=== PATIENT | female | born 1980 | race Caucasian/White ===

== ENCOUNTER 2017-09-01 21:53 | Inpatient (IN) ==
[2017-09-01] MEDS ORDERED: 0.9 % Sodium Chloride 1,000 ML IVC ONE (23:00)
[2017-09-01] MEDS ORDERED: Isovue-370 500 ML INFUS..BTL IV ONE (23:01)
[2017-09-01] MEDS ORDERED: Ipratropium/Albuterol Neb 3 ML IH ONE (23:02)
[2017-09-01] MEDS ORDERED: methylPREDNISolone 125 MG/2 ML VIAL IVP ONE (23:03)
[2017-09-01 23:06] LABS: Bilirubin,Urine Negative (Negative); Blood,Urine Trace-intact (Negative); Clarity,Urine Clear (Clear); Color,Urine Yellow (Yellow); Glucose,Urine (UA) Normal (Normal); Ketones,Urine Negative (Negative); Leukocyte Esterase,Urine Negative (Negative); Nitrite,Urine Negative (Negative); PH,Urine 6.5 pH Units (5.0-8.0); Protein,Urine Negative (Neg-Trace); Specific Gravity,Urine 1.025 (1.010-1.025); Urobilinogen,Urine Normal (Normal)
--- NOTE | 2017-09-01 23:07 | Emergency Department Note ---
Disposition Clinical Impression: COPD exacerbation, Hypoxia, Hypokalemia Disposition: Admitted As Inpatient Condition: Fair Time of Disposition: 02:29 General Adult HPI - General Chief complaint: ED Fever Stated complaint: Fever Time Seen by Provider: 09/01/17 22:48 Source: patient Mode of arrival: ambulatory Limitations: no limitations Nursing Notes Reviewed: Yes Vital Signs Reviewed: Yes - History of Present Illness HPI Narrative: 36-year-old female with history of endometriosis as well as chronic pain management for her back on morphine as well as Valium for her anxiety presents for evaluation of a fever. Patient states symptom onset was approximately 3 days ago. Since in the patient's had fevers as high as 103 Fahrenheit. Patient 's been taking Motrin for symptom relief. Last dose of Motrin was 2 hours prior to arrival. Patient also was complaining of dyspnea over 2 days. Nonproductive cough. Patient also has baseline abdominal pain and has a history of endometriosis. Patient denies any vomiting. Patient states her abdominal pain is chronic in nature. Has had prior abdominal surgeries related to her endometriosis. Patient was a about her surgical history and whether or not her ovaries were removed. Patient denies any IV drug use however does appear to have track mcdaniel on upper extremities. Pain Scale: 0 - Related Data Home Medications Medication Instructions Recorded Confirmed Morphine Sulfate [Nena] 1 cap PO BID PRN 09/02/17 09/02/17 diazePAM [Valium] 10 mg PO BID PRN 09/02/17 09/02/17 Allergies Allergy/AdvReac Type Severity Reaction Status Date / Time cephalexin [From Keflex] Allergy Swelling Verified 09/01/17 21:56 of Lip/Tongue/Throat All systems ED: reviewed and negative except as stated. Constitutional: Reports: fever Cardiovascular: Denies: chest pain Respiratory: Reports: cough, dyspnea Gastrointestinal: Reports: abdominal pain. Denies: vomiting Past Medical History - Past Medical History Source: patient Physical Exam - General Limitations: no limitations General appearance: alert, in no apparent distress, other (Appears under the influence) - Head Head exam: atraumatic, normocephalic, normal inspection - Eye Eye exam: Present: normal appearance, PERRL, EOMI. Absent: miosis, mydriasis - ENT ENT exam: normal exam - Neck Neck exam: Present: normal inspection - Chest Chest inspection: Present: normal inspection, symmetric chest wall rise - Respiratory Respiratory exam: Present: wheezes (Respiratory expiratory wheezes throughout), prolonged expiratory phase - Cardiovascular Cardiovascular exam: Present: normal rhythm, tachycardia. Absent: systolic murmur - Abdominal Exam Abdominal exam: Present: soft, tenderness (Right-sided abdominal tenderness) - Extremities Exam Extremities exam: Present: normal inspection, pedal edema (Trace bilateral) - Expanded Upper Extremity Exam Forearm/Wrist exam: Present: other (Tract mcdaniel of the upper extremities without signs of secondary infection.) - Expanded Lower Extremity Exam Neurovascular/Tendon exam: Present: normal capillary refill - Neurological Exam Neurological exam: Present: alert, oriented X3, CN II-XII intact - Skin Skin exam: Present: warm, dry, intact, normal color Course Course Narrative: Patient seen and examined. Patient appears to have track mcdaniel on upper extremity concerns for IV drug use and likely source of infection in the lungs. Patient will get a CT of the chest as well as abdomen pelvis given abdominal pain. Patient also get basic labs including a lactate. Disposition is pending. - Reevaluation(s) Reevaluation #1: While the patient was sleeping she had a good waveform and was satting 84% on room air. Patient is currently on 2 L. Time: 01:46 Reevaluation #2: Patient's lungs sound clear. The patient continues to be hypoxic was sleeping. Patient be admitted for COPD exacerbation. Time: 02:29 Vital Signs Temperature 99.1 F 09/01/17 21:54 Pulse Rate 115 09/01/17 21:54 Respiratory Rate 22 09/01/17 21:54 Blood Pressure 106/69 09/01/17 21:54 O2 Sat by Pulse Oximetry 91 09/01/17 21:54 Temperature 99.1 F 09/02/17 00:31 Pulse Rate 103 09/02/17 02:30 Respiratory Rate 18 09/02/17 03:18 Blood Pressure 95/82 09/02/17 03:18 O2 Sat by Pulse Oximetry 92 09/02/17 02:30 Oxygen Delivery Oxygen Delivery Nasal Cannula Medical Decision Making - MDM Narrative Medical decision making narrative: 36-year-old female with a pack-a-day smoking history chronically presents for evaluation of fever. Patient's had 3 days of fever with 2 days of worsening dyspnea. Patient's had a nonproductive cough. Patient was tachycardic during the ED course. Patient denied any history of IV drug use. However given the concern with a tachycardia dyspnea a CT Josseline chest was obtained. Patient also had a CT of the abdomen pelvis as the patient had abdominal pain with a history of endometriosis. Patient is on chronic opioids. Patient responded well to nebs and steroids. Patient has a mild white count. Patient's CT findings consistent with emphysema and patient was treated as a COPD exacerbation with antibiotics. Patient was hypoxic on room air is does not typically require oxygen. Patient will be admitted for COPD exacerbation. - Lab Data Lab results reviewed: Yes I reviewed the patient's lab results. Result diagrams: 09/01/17 22:57 09/01/17 22:57 Lab Results 09/01/17 09/01/17 09/01/17 Range/Units 22:45 22:45 22:57 WBC 11.9 H (4.3-11.1) K/mcL RBC 5.09 H (3.82-4.97) M/mcL Hgb 15.1 (11.5-15.4) g/dL Hct 46.3 H (35.3-44.9) % MCV 91.0 (83.0-100.0) fL MCH 29.7 (28.0-33.3) pg MCHC 32.6 (31.6-35.5) g/dL RDW 13.3 (11.5-14.5) % Plt Count 300 (140-400) K/mcL MPV 10.0 (9.4-12.4) fL Immature Gran % 0.4 (0-4) % Seg Neutrophils % 68.3 % Lymphocytes % 23.5 % Monocytes % 6.0 % Eosinophils % 1.4 % Basophils % 0.4 % Neutrophils # 8.1 (1.6-8.9) K/mcL Lymphocytes # 2.8 (0.6-4.6) K/mcL Monocytes # 0.7 (0.0-1.3) K/mcL Eosinophils # 0.2 (0.0-0.6) K/mcL Basophils # 0.1 (0.0-0.2) K/mcL Sodium (136-145) mEq/L Potassium (3.5-5.1) mEq/L Chloride (98-107) mEq/L Carbon Dioxide (23-29) mEq/L BUN (6-20) mg/dL Creatinine (0.60-1.20) mg/dL Est GFR ( Amer) (> 60) Est GFR (Non-Af Amer) (> 60) BUN/Creatinine Ratio (6-26) Glucose (70-105) mg/dL Calculated Osmolality (280-300) Lactic Acid (0.5-2.2) mmol/L Calcium (8.6-10.3) mg/dL Magnesium (1.6-2.6) mg/dL Total Bilirubin (0.3-1.0) mg/dL Direct Bilirubin (0.0-0.2) mg/dL Indirect Bilirubin (0.0-1.2) mg/dL AST (13-39) Units/L ALT (7-52) Units/L Alkaline Phosphatase (34-104) Units/L Troponin I (< 0.04) ng/mL B-Natriuretic Peptide (Less than 100) pg/mL Serum Total Protein (6.4-8.9) g/dL Albumin (3.5-5.7) g/dL Globulin (2.4-3.5) g/dL Albumin/Globulin Ratio (1.1-2.2) Urine Color Yellow (Yellow) Urine Clarity Clear (Clear) Urine pH 6.5 (5.0-8.0) pH Units Ur Specific [place] 1.025 (1.010-1.025) Urine Protein Negative (Neg-Trace) mg/dL Urine Glucose (UA) Normal (Normal) mg/dL Urine Ketones Negative (Negative) mg/dL Urine Blood Trace-intact H (Negative) Urine Nitrite Negative (Negative) Urine Bilirubin Negative (Negative) Urine Urobilinogen Normal (Normal) mg/dL Ur Leukocyte Esterase Negative (Negative) Urine Microscopic RBC 0-3 (0-3) per hpf Ur Squamous Epith Cells Few (None-Few) per lpf Urine Bacteria None Seen (None-Few) per hpf Hyaline Casts None Seen (None-Few) per lpf Ur Culture Indicated? NO (NO) Urine Test Negative (Negative) Urine Opiates Screen (Hxnduw=663) ng/mL Ur Barbiturates Screen (Eoqtns=851) ng/mL Ur Phencyclidine Scrn (Cutoff=25) ng/mL Ur Amphetamines Screen (Afjvou=8895) ng/mL U Benzodiazepines Scrn (Jpsxyi=029) ng/mL Urine Cocaine Screen (Cutoff= 300) ng/mL U Marijuana (THC) Screen (Cutoff = 50) ng/mL 09/01/17 09/01/17 09/01/17 Range/Units 22:57 22:57 23:03 WBC (4.3-11.1) K/mcL RBC (3.82-4.97) M/mcL Hgb (11.5-15.4) g/dL Hct (35.3-44.9) % MCV (83.0-100.0) fL MCH (28.0-33.3) pg MCHC (31.6-35.5) g/dL RDW (11.5-14.5) % Plt Count (140-400) K/mcL MPV (9.4-12.4) fL Immature Gran % (0-4) % Seg Neutrophils % % Lymphocytes % % Monocytes % % Eosinophils % % Basophils % % Neutrophils # (1.6-8.9) K/mcL Lymphocytes # (0.6-4.6) K/mcL Monocytes # (0.0-1.3) K/mcL Eosinophils # (0.0-0.6) K/mcL Basophils # (0.0-0.2) K/mcL Sodium 136 (136-145) mEq/L Potassium 3.1 L (3.5-5.1) mEq/L Chloride 102 (98-107) mEq/L Carbon Dioxide 25 (23-29) mEq/L BUN 8 (6-20) mg/dL Creatinine 0.75 (0.60-1.20) mg/dL Est GFR ( Amer) > 60 (> 60) Est GFR (Non-Af Amer) > 60 (> 60) BUN/Creatinine Ratio 11 (6-26) Glucose 148 H (70-105) mg/dL Calculated Osmolality 283 (280-300) Lactic Acid 2.0 (0.5-2.2) mmol/L Calcium 9.3 (8.6-10.3) mg/dL Magnesium 1.7 (1.6-2.6) mg/dL Total Bilirubin 0.3 (0.3-1.0) mg/dL Direct Bilirubin 0.1 (0.0-0.2) mg/dL Indirect Bilirubin 0.2 (0.0-1.2) mg/dL AST 34 (13-39) Units/L ALT 34 (7-52) Units/L Alkaline Phosphatase 95 (34-104) Units/L Troponin I < 0.03 (< 0.04) ng/mL B-Natriuretic Peptide 57 (Less than 100) pg/mL Serum Total Protein 7.4 (6.4-8.9) g/dL Albumin 3.9 (3.5-5.7) g/dL Globulin 3.5 (2.4-3.5) g/dL Albumin/Globulin Ratio 1.1 (1.1-2.2) Urine Color (Yellow) Urine Clarity (Clear) Urine pH (5.0-8.0) pH Units Ur Specific [place] (1.010-1.025) Urine Protein (Neg-Trace) mg/dL Urine Glucose (UA) (Normal) mg/dL Urine Ketones (Negative) mg/dL Urine Blood (Negative) Urine Nitrite (Negative) Urine Bilirubin (Negative) Urine Urobilinogen (Normal) mg/dL Ur Leukocyte Esterase (Negative) Urine Microscopic RBC (0-3) per hpf Ur Squamous Epith Cells (None-Few) per lpf Urine Bacteria (None-Few) per hpf Hyaline Casts (None-Few) per lpf Ur Culture Indicated? (NO) Urine Test (Negative) Urine Opiates Screen (Seyagg=769) ng/mL Ur Barbiturates Screen (Ibosjf=633) ng/mL Ur Phencyclidine Scrn (Cutoff=25) ng/mL Ur Amphetamines Screen (Eymsbi=5686) ng/mL U Benzodiazepines Scrn (Vlikod=563) ng/mL Urine Cocaine Screen (Cutoff= 300) ng/mL U Marijuana (THC) Screen (Cutoff = 50) ng/mL 09/01/17 Range/Units 23:04 WBC (4.3-11.1) K/mcL RBC (3.82-4.97) M/mcL Hgb (11.5-15.4) g/dL Hct (35.3-44.9) % MCV (83.0-100.0) fL MCH (28.0-33.3) pg MCHC (31.6-35.5) g/dL RDW (11.5-14.5) % Plt Count (140-400) K/mcL MPV (9.4-12.4) fL Immature Gran % (0-4) % Seg Neutrophils % % Lymphocytes % % Monocytes % % Eosinophils % % Basophils % % Neutrophils # (1.6-8.9) K/mcL Lymphocytes # (0.6-4.6) K/mcL Monocytes # (0.0-1.3) K/mcL Eosinophils # (0.0-0.6) K/mcL Basophils # (0.0-0.2) K/mcL Sodium (136-145) mEq/L Potassium (3.5-5.1) mEq/L Chloride (98-107) mEq/L Carbon Dioxide (23-29) mEq/L BUN (6-20) mg/dL Creatinine (0.60-1.20) mg/dL Est GFR ( Amer) (> 60) Est GFR (Non-Af Amer) (> 60) BUN/Creatinine Ratio (6-26) Glucose (70-105) mg/dL Calculated Osmolality (280-300) Lactic Acid (0.5-2.2) mmol/L Calcium (8.6-10.3) mg/dL Magnesium (1.6-2.6) mg/dL Total Bilirubin (0.3-1.0) mg/dL Direct Bilirubin (0.0-0.2) mg/dL Indirect Bilirubin (0.0-1.2) mg/dL AST (13-39) Units/L ALT (7-52) Units/L Alkaline Phosphatase (34-104) Units/L Troponin I (< 0.04) ng/mL B-Natriuretic Peptide (Less than 100) pg/mL Serum Total Protein (6.4-8.9) g/dL Albumin (3.5-5.7) g/dL Globulin (2.4-3.5) g/dL Albumin/Globulin Ratio (1.1-2.2) Urine Color (Yellow) Urine Clarity (Clear) Urine pH (5.0-8.0) pH Units Ur Specific [place] (1.010-1.025) Urine Protein (Neg-Trace) mg/dL Urine Glucose (UA) (Normal) mg/dL Urine Ketones (Negative) mg/dL Urine Blood (Negative) Urine Nitrite (Negative) Urine Bilirubin (Negative) Urine Urobilinogen (Normal) mg/dL Ur Leukocyte Esterase (Negative) Urine Microscopic RBC (0-3) per hpf Ur Squamous Epith Cells (None-Few) per lpf Urine Bacteria (None-Few) per hpf Hyaline Casts (None-Few) per lpf Ur Culture Indicated? (NO) Urine Test (Negative) Urine Opiates Screen Positive H (Rbxvyt=352) ng/mL Ur Barbiturates Screen Positive H (Vsyyid=151) ng/mL Ur Phencyclidine Scrn Negative (Cutoff=25) ng/mL Ur Amphetamines Screen Negative (Wdioys=3461) ng/mL U Benzodiazepines Scrn Positive H (Xetuog=576) ng/mL Urine Cocaine Screen Negative (Cutoff= 300) ng/mL U Marijuana (THC) Screen Negative (Cutoff = 50) ng/mL - Radiology Data Radiology results reviewed: Yes I reviewed the patient's radiology results. Chest X-Ray 09/01/17 21:57 IMPRESSION: No acute disease. D/ / Yelitza Dailey Cha, MD / Yelitza Dailey Cha, MD Interpreting Provider: Yelitza Dailey Cha, MD Chest CTA 09/02/17 00:01 IMPRESSION: Negative for acute pulmonary embolism. Mild paraseptal and centrilobular emphysema. Scattered upper lobe predominant small centrilobular nodularity may reflect respiratory bronchiolitis in a smoker. Mild airway inflammation is also presumably smoking-related. No acute findings in the abdomen or pelvis. D/ / Shalom Kelsey / Shalom Kelsey Interpreting Provider: Shalom Kelsey - EKG Data EKG #1 EKG attestation: Yes I reviewed and interpreted this EKG. EKG shows normal: sinus rhythm Rate: tachycardia Rhythm: NSR [place]/QRS: normal Interpretation: no acute changes S.B.A.R. - S.B.A.RYumiko Situation: Demographics Background: Presenting Complaint Assessment: Vital Signs, Course and respsone to treatment, Patient/Family Expectation Recommendation: Barrier(s) to disposition, Recommendation based on pending studies, treatments, or consults S.B.A.RYumiko Report Given to: Dr. Simón Workman Repor Time: 02:28
[2017-09-01 23:11] LABS: Basophils # 0.1 K/mcL (0.0-0.2); Basophils % 0.4 %; Eosinophils # 0.2 K/mcL (0.0-0.6); Eosinophils % 1.4 %; Hematocrit 46.3 % (35.3-44.9); Hemoglobin 15.1 g/dL (11.5-15.4); Immature Granulocytes % 0.4 % (0-4); Lymphocytes # 2.8 K/mcL (0.6-4.6); Lymphocytes % 23.5 %; Mean Corpuscular HGB Conc 32.6 g/dL (31.6-35.5); Mean Corpuscular Hemoglobin 29.7 pg (28.0-33.3); Monocytes # 0.7 K/mcL (0.0-1.3); Neutrophils # 8.1 K/mcL (1.6-8.9); Platelet Count 300 K/mcL (140-400); Red Blood Count 5.09 M/mcL (3.82-4.97); Red Cell Distribution Width 13.3 % (11.5-14.5); Segmented Neutrophils % 68.3 %
[2017-09-01 23:21] LABS: RBC,Urine 0-3 per hpf (0-3)
[2017-09-01 23:22] LABS: Bacteria,Urine None Seen per hpf (None-Few); Hyaline Casts,Urine None Seen per lpf (None-Few); Squamous Epithelial Cell,Urine Few per lpf (None-Few)
[2017-09-01 23:30] LABS: Alanine Aminotransferase 34 Units/L (7-52); Albumin 3.9 g/dL (3.5-5.7); Albumin/Globulin Ratio 1.1 (1.1-2.2); Alkaline Phosphatase 95 Units/L (34-104); Aspartate Amino Transferase 34 Units/L (13-39); BUN/Creatinine Ratio 11 (6-26); Bilirubin,Direct 0.1 mg/dL (0.0-0.2); Bilirubin,Indirect 0.2 mg/dL (0.0-1.2); Bilirubin,Total 0.3 mg/dL (0.3-1.0); Blood Urea Nitrogen 8 mg/dL (6-20); Calcium 9.3 mg/dL (8.6-10.3); Carbon Dioxide 25 mEq/L (23-29); Chloride 102 mEq/L (98-107); Globulin 3.5 g/dL (2.4-3.5); Glucose 148 mg/dL (70-105); Osmolality,Calculated 283 (280-300); Potassium 3.1 mEq/L (3.5-5.1); Sodium 136 mEq/L (136-145); Total Protein 7.4 g/dL (6.4-8.9); eGFR For African Americans > 60 (> 60); eGFR For Non-African Americans > 60 (> 60)
[2017-09-01 23:38] LABS: Troponin I < 0.03 ng/mL (< 0.04)
[2017-09-02 00:15] LABS: Amphetamine Screen,Urine Negative ng/mL (Cutoff=1000); Barbiturate Screen,Urine Positive ng/mL (Cutoff=200); Benzodiazepines Screen,Urine Positive ng/mL (Cutoff=200); Cannabinoid Screen,Urine Negative ng/mL (Cutoff = 50); Cocaine Screen,Urine Negative ng/mL (Cutoff= 300); Opiate Screen,Urine Positive ng/mL (Cutoff=300); Phencyclidine Screen,Urine Negative ng/mL (Cutoff=25)
[2017-09-02] MEDS ORDERED: Levofloxacin 750 MG/150 ML 750 MG/150 ML BAG IVPB ONE (01:45)
[2017-09-02 02:50] LABS: Magnesium 1.7 mg/dL (1.6-2.6)
--- NOTE | 2017-09-02 03:24 | Emergency Department Note ---
Disposition Clinical Impression: COPD exacerbation, Hypoxia, Hypokalemia Disposition: Admitted As Inpatient Condition: Fair General Adult HPI - General Chief complaint: ED Fever Stated complaint: Fever Time Seen by Provider: 09/01/17 22:48 Source: patient Mode of arrival: ambulatory Limitations: no limitations Nursing Notes Reviewed: Yes Vital Signs Reviewed: Yes - History of Present Illness Pain Scale: 0 - Related Data Home Medications Medication Instructions Recorded Confirmed Morphine Sulfate [Nena] 1 cap PO BID PRN 09/02/17 09/02/17 diazePAM [Valium] 10 mg PO BID PRN 09/02/17 09/02/17 Allergies Allergy/AdvReac Type Severity Reaction Status Date / Time cephalexin [From Keflex] Allergy Swelling Verified 09/01/17 21:56 of Lip/Tongue/Throat Constitutional: Reports: fever Cardiovascular: Denies: chest pain Respiratory: Reports: cough, dyspnea Gastrointestinal: Reports: abdominal pain. Denies: vomiting Past Medical History - Past Medical History Medical history: Reports: non-contributory - Social History Smoking Status: Unknown if ever smoked Physical Exam - General Limitations: no limitations General appearance: alert, in no apparent distress, other (Appears under the influence) Course Vital Signs Temperature 99.1 F 09/01/17 21:54 Pulse Rate 115 09/01/17 21:54 Respiratory Rate 22 09/01/17 21:54 Blood Pressure 106/69 09/01/17 21:54 O2 Sat by Pulse Oximetry 91 09/01/17 21:54 Temperature 98.6 F 09/02/17 02:30 Pulse Rate 103 09/02/17 02:30 Respiratory Rate 18 09/02/17 03:18 Blood Pressure 95/82 09/02/17 03:18 O2 Sat by Pulse Oximetry 92 09/02/17 02:30 Oxygen Delivery Oxygen Delivery Nasal Cannula Medical Decision Making - Lab Data Result diagrams: 09/01/17 22:57 09/01/17 22:57 Lab Results 09/01/17 09/01/17 09/01/17 Range/Units 22:45 22:45 22:57 WBC 11.9 H (4.3-11.1) K/mcL RBC 5.09 H (3.82-4.97) M/mcL Hgb 15.1 (11.5-15.4) g/dL Hct 46.3 H (35.3-44.9) % MCV 91.0 (83.0-100.0) fL MCH 29.7 (28.0-33.3) pg MCHC 32.6 (31.6-35.5) g/dL RDW 13.3 (11.5-14.5) % Plt Count 300 (140-400) K/mcL MPV 10.0 (9.4-12.4) fL Immature Gran % 0.4 (0-4) % Seg Neutrophils % 68.3 % Lymphocytes % 23.5 % Monocytes % 6.0 % Eosinophils % 1.4 % Basophils % 0.4 % Neutrophils # 8.1 (1.6-8.9) K/mcL Lymphocytes # 2.8 (0.6-4.6) K/mcL Monocytes # 0.7 (0.0-1.3) K/mcL Eosinophils # 0.2 (0.0-0.6) K/mcL Basophils # 0.1 (0.0-0.2) K/mcL Sodium (136-145) mEq/L Potassium (3.5-5.1) mEq/L Chloride (98-107) mEq/L Carbon Dioxide (23-29) mEq/L BUN (6-20) mg/dL Creatinine (0.60-1.20) mg/dL Est GFR ( Amer) (> 60) Est GFR (Non-Af Amer) (> 60) BUN/Creatinine Ratio (6-26) Glucose (70-105) mg/dL Calculated Osmolality (280-300) Lactic Acid (0.5-2.2) mmol/L Calcium (8.6-10.3) mg/dL Magnesium (1.6-2.6) mg/dL Total Bilirubin (0.3-1.0) mg/dL Direct Bilirubin (0.0-0.2) mg/dL Indirect Bilirubin (0.0-1.2) mg/dL AST (13-39) Units/L ALT (7-52) Units/L Alkaline Phosphatase (34-104) Units/L Troponin I (< 0.04) ng/mL B-Natriuretic Peptide (Less than 100) pg/mL Serum Total Protein (6.4-8.9) g/dL Albumin (3.5-5.7) g/dL Globulin (2.4-3.5) g/dL Albumin/Globulin Ratio (1.1-2.2) Urine Color Yellow (Yellow) Urine Clarity Clear (Clear) Urine pH 6.5 (5.0-8.0) pH Units Ur Specific [place] 1.025 (1.010-1.025) Urine Protein Negative (Neg-Trace) mg/dL Urine Glucose (UA) Normal (Normal) mg/dL Urine Ketones Negative (Negative) mg/dL Urine Blood Trace-intact H (Negative) Urine Nitrite Negative (Negative) Urine Bilirubin Negative (Negative) Urine Urobilinogen Normal (Normal) mg/dL Ur Leukocyte Esterase Negative (Negative) Urine Microscopic RBC 0-3 (0-3) per hpf Ur Squamous Epith Cells Few (None-Few) per lpf Urine Bacteria None Seen (None-Few) per hpf Hyaline Casts None Seen (None-Few) per lpf Ur Culture Indicated? NO (NO) Urine Test Negative (Negative) Urine Opiates Screen (Mzbdoa=874) ng/mL Ur Barbiturates Screen (Viqwnk=446) ng/mL Ur Phencyclidine Scrn (Cutoff=25) ng/mL Ur Amphetamines Screen (Dlvltd=1963) ng/mL U Benzodiazepines Scrn (Yoesrd=606) ng/mL Urine Cocaine Screen (Cutoff= 300) ng/mL U Marijuana (THC) Screen (Cutoff = 50) ng/mL 09/01/17 09/01/17 09/01/17 Range/Units 22:57 22:57 23:03 WBC (4.3-11.1) K/mcL RBC (3.82-4.97) M/mcL Hgb (11.5-15.4) g/dL Hct (35.3-44.9) % MCV (83.0-100.0) fL MCH (28.0-33.3) pg MCHC (31.6-35.5) g/dL RDW (11.5-14.5) % Plt Count (140-400) K/mcL MPV (9.4-12.4) fL Immature Gran % (0-4) % Seg Neutrophils % % Lymphocytes % % Monocytes % % Eosinophils % % Basophils % % Neutrophils # (1.6-8.9) K/mcL Lymphocytes # (0.6-4.6) K/mcL Monocytes # (0.0-1.3) K/mcL Eosinophils # (0.0-0.6) K/mcL Basophils # (0.0-0.2) K/mcL Sodium 136 (136-145) mEq/L Potassium 3.1 L (3.5-5.1) mEq/L Chloride 102 (98-107) mEq/L Carbon Dioxide 25 (23-29) mEq/L BUN 8 (6-20) mg/dL Creatinine 0.75 (0.60-1.20) mg/dL Est GFR ( Amer) > 60 (> 60) Est GFR (Non-Af Amer) > 60 (> 60) BUN/Creatinine Ratio 11 (6-26) Glucose 148 H (70-105) mg/dL Calculated Osmolality 283 (280-300) Lactic Acid 2.0 (0.5-2.2) mmol/L Calcium 9.3 (8.6-10.3) mg/dL Magnesium 1.7 (1.6-2.6) mg/dL Total Bilirubin 0.3 (0.3-1.0) mg/dL Direct Bilirubin 0.1 (0.0-0.2) mg/dL Indirect Bilirubin 0.2 (0.0-1.2) mg/dL AST 34 (13-39) Units/L ALT 34 (7-52) Units/L Alkaline Phosphatase 95 (34-104) Units/L Troponin I < 0.03 (< 0.04) ng/mL B-Natriuretic Peptide 57 (Less than 100) pg/mL Serum Total Protein 7.4 (6.4-8.9) g/dL Albumin 3.9 (3.5-5.7) g/dL Globulin 3.5 (2.4-3.5) g/dL Albumin/Globulin Ratio 1.1 (1.1-2.2) Urine Color (Yellow) Urine Clarity (Clear) Urine pH (5.0-8.0) pH Units Ur Specific [place] (1.010-1.025) Urine Protein (Neg-Trace) mg/dL Urine Glucose (UA) (Normal) mg/dL Urine Ketones (Negative) mg/dL Urine Blood (Negative) Urine Nitrite (Negative) Urine Bilirubin (Negative) Urine Urobilinogen (Normal) mg/dL Ur Leukocyte Esterase (Negative) Urine Microscopic RBC (0-3) per hpf Ur Squamous Epith Cells (None-Few) per lpf Urine Bacteria (None-Few) per hpf Hyaline Casts (None-Few) per lpf Ur Culture Indicated? (NO) Urine Test (Negative) Urine Opiates Screen (Gmvwxc=642) ng/mL Ur Barbiturates Screen (Apdmrk=865) ng/mL Ur Phencyclidine Scrn (Cutoff=25) ng/mL Ur Amphetamines Screen (Egnonu=4425) ng/mL U Benzodiazepines Scrn (Jvbfqq=117) ng/mL Urine Cocaine Screen (Cutoff= 300) ng/mL U Marijuana (THC) Screen (Cutoff = 50) ng/mL 09/01/17 Range/Units 23:04 WBC (4.3-11.1) K/mcL RBC (3.82-4.97) M/mcL Hgb (11.5-15.4) g/dL Hct (35.3-44.9) % MCV (83.0-100.0) fL MCH (28.0-33.3) pg MCHC (31.6-35.5) g/dL RDW (11.5-14.5) % Plt Count (140-400) K/mcL MPV (9.4-12.4) fL Immature Gran % (0-4) % Seg Neutrophils % % Lymphocytes % % Monocytes % % Eosinophils % % Basophils % % Neutrophils # (1.6-8.9) K/mcL Lymphocytes # (0.6-4.6) K/mcL Monocytes # (0.0-1.3) K/mcL Eosinophils # (0.0-0.6) K/mcL Basophils # (0.0-0.2) K/mcL Sodium (136-145) mEq/L Potassium (3.5-5.1) mEq/L Chloride (98-107) mEq/L Carbon Dioxide (23-29) mEq/L BUN (6-20) mg/dL Creatinine (0.60-1.20) mg/dL Est GFR ( Amer) (> 60) Est GFR (Non-Af Amer) (> 60) BUN/Creatinine Ratio (6-26) Glucose (70-105) mg/dL Calculated Osmolality (280-300) Lactic Acid (0.5-2.2) mmol/L Calcium (8.6-10.3) mg/dL Magnesium (1.6-2.6) mg/dL Total Bilirubin (0.3-1.0) mg/dL Direct Bilirubin (0.0-0.2) mg/dL Indirect Bilirubin (0.0-1.2) mg/dL AST (13-39) Units/L ALT (7-52) Units/L Alkaline Phosphatase (34-104) Units/L Troponin I (< 0.04) ng/mL B-Natriuretic Peptide (Less than 100) pg/mL Serum Total Protein (6.4-8.9) g/dL Albumin (3.5-5.7) g/dL Globulin (2.4-3.5) g/dL Albumin/Globulin Ratio (1.1-2.2) Urine Color (Yellow) Urine Clarity (Clear) Urine pH (5.0-8.0) pH Units Ur Specific [place] (1.010-1.025) Urine Protein (Neg-Trace) mg/dL Urine Glucose (UA) (Normal) mg/dL Urine Ketones (Negative) mg/dL Urine Blood (Negative) Urine Nitrite (Negative) Urine Bilirubin (Negative) Urine Urobilinogen (Normal) mg/dL Ur Leukocyte Esterase (Negative) Urine Microscopic RBC (0-3) per hpf Ur Squamous Epith Cells (None-Few) per lpf Urine Bacteria (None-Few) per hpf Hyaline Casts (None-Few) per lpf Ur Culture Indicated? (NO) Urine Test (Negative) Urine Opiates Screen Positive H (Wneejx=540) ng/mL Ur Barbiturates Screen Positive H (Tqvizr=061) ng/mL Ur Phencyclidine Scrn Negative (Cutoff=25) ng/mL Ur Amphetamines Screen Negative (Hgdaea=1935) ng/mL U Benzodiazepines Scrn Positive H (Vdeple=794) ng/mL Urine Cocaine Screen Negative (Cutoff= 300) ng/mL U Marijuana (THC) Screen Negative (Cutoff = 50) ng/mL Attestation Statement - Attestation Attestation: I, Frank Nayak MD, personally evaluated this patient and discussed their management with the resident physician. I reviewed the resident's note and agree with the documented findings, medical decision making, and plan of care. 36-year-old female presents to the emergency department complaining of fever for the past 2-3 days. She states her temp has been up to 103. Patient is on chronic pain medications for chronic back pain and endometriosis pain. There has been some mild cough and mild shortness of breath. No chest pain. Some nausea and vomiting. No urinary symptoms. On examination patient is a well-developed well-nourished well-appearing female in no acute distress. She is very drowsy but arouses easily and answers questions appropriately. There is no cyanosis or diaphoresis. Chest is nontender to palpation. Breath sounds are equal bilaterally with some scattered bilateral expiratory wheezes. No rales noted. Heart rate and rhythm. Abdomen soft and nontender with normal bowel sounds. Labs reviewed. EKG shows a sinus tachycardia with ventricular rate of 104. Otherwise no acute ST segment elevation or depression. No ectopy or arrhythmia. Chest x-ray negative. CTA of the chest shows no evidence of pulmonary embolism. Possible bronchiolitis. CT the abdomen and pelvis showed no acute abnormality. Patient states that she does have COPD and uses an inhaler. She is not on home oxygen and does not have a nebulizer at home. Patient noted to drop her oxygen saturation down to 86% on room air at rest while here in the emergency department. She was placed on oxygen by nasal cannula. The hospitalist, Dr. Gr, was consulted and accepted admission of the patient.
[2017-09-02] MEDS ORDERED: Naloxone 0.4 MG/ML INJ IVP PRN (03:46)
[2017-09-02] MEDS ORDERED: Acetaminophen 325 MG TABLET PO PRN (03:46)
[2017-09-02] MEDS ORDERED: Ipratropium/Albuterol Neb 3 ML IH PRN (03:49)
[2017-09-02] MEDS ORDERED: diazePAM 10 MG TABLET PO PRN (03:50)
[2017-09-02] MEDS ORDERED: MORPHINE SULFATE PO PRN (03:50)
--- NOTE | 2017-09-02 04:07 | Internal Med History&Physical ---
Date of Encounter: 09/02/17 Time of Encounter: 02:00 Internal Medicine - H&P: HPI Chief complaint: Fever Admitted From: Home Plans for Post Hospital Care: Home History of present illness: Ms. Salazar is a 36 year old female present to ER for fever and headache. Past medical history is significant for COPD, migraine, chronic low back pain. Patient presented to ER for fever in last 3 days. Patient reports temperature is 103. Patient denies runny nose or sore throat. Patient has mild cough with no sputum. Patient complaint headache but she has history of migraine. Patient denies neck rigidity. In the emergency room, she was found desaturation to 80s. Patient is not using oxygen and home. She was treated with antibiotic, steroid, and bronchodilator. She feels better but still cannot get rid of oxygen. The patient was admitted for further management. I have discussed CODE STATUS with this patient. She clearly told me she does not want CPR if cardiac arrest happens. She apparently understands what it means and firmly ask for DNR. She said that she can accept intubation. DNR CCA placed. Past Med Surg Social Fam HX - Past Medical History Medical history: non-contributory - Social History Smoking Status: Unknown if ever smoked - Family History Mother History Unknown: Yes Internal Medicine - H&P: Meds Morphine Sulfate [Nena] 1 cap PO BID PRN 09/02/17 [History] diazePAM [Valium] 10 mg PO BID PRN 09/02/17 [History] 3 Allergy/AdvReac Type Severity Reaction Status Date / Time cephalexin [From Keflex] Allergy Swelling Verified 09/01/17 21:56 of Lip/Tongue/Throat All Systems PM: A 10-system review of systems was performed and is negative for pertinent findings except as documented above in the HPI. - Constitutional Vitals: Temp Pulse Resp BP Pulse Ox 97.9 F 103 16 115/70 93 09/02/17 03:41 09/02/17 03:41 09/02/17 03:41 09/02/17 03:41 09/02/17 03:41 General appearance: Present: A&O X 3, no acute distress, answers questions appropriately - Head Head exam: Present: atraumatic, normocephalic - Eye Eye exam: Present: PERRL, conjuntiva pink, sclera anicteric Pupils: Present: PERRL - Neck Neck exam general surgery: Present: supple, trachea midline. Absent: lymphadenopathy - Respiratory Respiratory exam: Present: CTAB, wheezes (Scattered wheezes bilaterally). Absent: accessory muscle use, rales, rhonchi - Cardiovascular Cardiovascular exam: Present: RRR, +S1, +S2. Absent: diastolic murmur, gallop, rubs, systolic murmur - GI/Abdominal GI/Abdominal exam: Present: normal bowel sounds, soft, no peritoneal signs. Absent: distended, tenderness - Extremities Exam Extremities exam: Present: warm, radial pulses palpable and symmetrical. Absent : calf tenderness, cyanotic, pedal edema - Neurological Exam Neurological exam: Present: CN II-XII intact, oriented X3, no focal deficits. Absent: pronater drift, facial droop, speech deficit - Skin Skin exam: Present: dry, intact Internal Med - H&P Results - Labs CBC & Chem 7: 09/01/17 22:57 09/01/17 22:57 - Assessment and plan (1) Migraine Current Visit: Yes Status: Acute Assessment and plan: Patient has history of migraine. With headache. Neck is supple. - Continue symptomatic control with Tylenol. Qualifiers: Migraine type: without aura Status migrainosus presence: without status migrainosus Intractability: not intractable Qualified Code(s): G43.009 - Migraine without aura, not intractable, without status migrainosus (2) Low back pain Current Visit: Yes Status: Acute Assessment and plan: Patient takes Valium and morphine at home. We will continue home dose of medication and closely monitor patient Qualifiers: Chronicity: chronic Back pain laterality: midline Sciatica presence: unspecified whether sciatica present Qualified Code(s): M54.5 - Low back pain ; G89.29 - Other chronic pain (3) DVT prophylaxis Current Visit: Yes Status: Acute Assessment and plan: Lovenox SC (4) COPD exacerbation Current Visit: Yes Status: Acute Assessment and plan: Patient has nonproductive cough. Reports fever but temperature is within normal limits in the ER. CTA has been done, no PE, shows acute bronchitis. Consider COPD exacerbation as patient has history of COPD. - Place patient on Levaquin, by mouth prednisone, and DuoNeb - As patient reports fever, blood culture has been sent, follow-up result - Continue oxygen supportive treatment. Patient may need home oxygen upon discharge. (5) Hypokalemia Current Visit: Yes Status: Acute Assessment and plan: Supplement has been given in ER. Follow-up potassium level (6) Hypoxia Current Visit: Yes Status: Acute Assessment and plan: Due to COPD exacerbation. No PE on CTA. Continue oxygen supportive treatment and treated the underlying disease. - Time Spent With Patient Total time spent is greater than 50% in coordination of care (as documented) at patient's floor/unit and/or counseling patient: 40 minutes Greater than 35 minutes
[2017-09-02] MEDS: Ipratropium/Albuterol Neb 3 ML IH SCH ×2 (05:13→10:50)
[2017-09-02 05:33] LABS: Hematocrit 45.2 % (35.3-44.9); Hemoglobin 14.6 g/dL (11.5-15.4); Immature Granulocytes % 0.6 % (0-4); Lymphocytes % 7.6 %; Mean Corpuscular HGB Conc 32.3 g/dL (31.6-35.5); Mean Corpuscular Hemoglobin 29.9 pg (28.0-33.3); Mean Corpuscular Volume 92.4 fL (83.0-100.0); Mean Platelet Volume 10.4 fL (9.4-12.4); Monocytes % 0.6 %; Platelet Count 313 K/mcL (140-400); Red Blood Count 4.89 M/mcL (3.82-4.97); Red Cell Distribution Width 13.3 % (11.5-14.5); Segmented Neutrophils % 91.1 %
[2017-09-02 05:34] LABS: Basophils % 0.1 %; Lymphocytes # 0.7 K/mcL (0.6-4.6); Monocytes # 0.1 K/mcL (0.0-1.3)
[2017-09-02 05:53] LABS: BUN/Creatinine Ratio 8 (6-26); Blood Urea Nitrogen 6 mg/dL (6-20); Calcium 9.2 mg/dL (8.6-10.3); Carbon Dioxide 22 mEq/L (23-29); Chloride 105 mEq/L (98-107); Glucose 212 mg/dL (70-105); Magnesium 1.7 mg/dL (1.6-2.6); Osmolality,Calculated 290 (280-300); Potassium 3.3 mEq/L (3.5-5.1); Sodium 138 mEq/L (136-145); eGFR For African Americans > 60 (> 60); eGFR For Non-African Americans > 60 (> 60)
[2017-09-02] MEDS ORDERED: *HR* Enoxaparin 40 MG/0.4 ML SYRINGE SQ SCH (06:00)
[2017-09-02] MEDS ORDERED: PERCOCET PO PRN (06:15)
--- NOTE | 2017-09-02 06:24 | Event Note ---
Date of Encounter: 09/02/17 Time of Encounter: 06:00 Pt expressed to RN that she wants to be full code. Code status changed to full code per pt's request.
[2017-09-02] MEDS ORDERED: tiZANidine 4 MG TABLET PO PRN (09:00)
[2017-09-02] MEDS ORDERED: predniSONE 20 MG TABLET PO SCH (09:00)
--- NOTE | 2017-09-02 10:07 | Electrocardiograph Report ---
[place] [id number] Test Date: 2017-09-01 Pat Name: Dominga Salazar Department: 103 Room: 3B Gender: F Web Analytics Developer: JANET : 1980 Requested By: Chet Juares Order Number: [id number] Reading MD: Kike Moreno Measurements Intervals [place] Rate: 104 P: 58 NH: 149 QRS: 47 QRSD: 82 T: 41 QT: 314 QTc: 374 Interpretive Statements SINUS TACHYCARDIA ABNORMAL RHYTHM ECG Electronically Signed On 09-02-2017 10:06:12 EDT by Kike Moreno
[2017-09-02 11:35] VITALS: BP 118/72
--- NOTE | 2017-09-02 13:23 | Discharge Summary ---
Date of Encounter: 09/02/17 Time of Encounter: 12:15 - Discharge Diagnosis (1) COPD exacerbation Priority: Primary Status: Acute Assessment and Plan: Pt amb easily in her room without distress. Lungs with wheezing in anterior upper airways, diminished in posterior lung murphy. Pt has been afebrile, has tachycardia, is normotensive, and is not requiring supplemental oxygen. INitial leukocytosis has resolved. Continue po antibiotic and steroids after discharge. Pt was found outside of the hospital by the fountain smoking with male visitor. Pt was in no distress. (2) Hypoxia Priority: Secondary Status: Resolved Assessment and Plan: Hypoxic on admission due to COPD exacerbation. No PE on CTA. Pt is no longer requiring supplemental 02. (3) Hypokalemia Priority: Secondary Status: Acute Assessment and Plan: Improved. Will discharge pt with po supplements for 1 day. (4) Migraine Priority: Secondary Status: Acute Assessment and Plan: No acute migraine. Continue follow up with PCP. Qualifiers: Migraine type: without aura Status migrainosus presence: without status migrainosus Intractability: not intractable Qualified Code(s): G43.009 - Migraine without aura, not intractable, without status migrainosus (5) Low back pain Priority: Secondary Status: Chronic Assessment and Plan: Chronic. Continue home medications. Qualifiers: Chronicity: chronic Back pain laterality: midline Sciatica presence: unspecified whether sciatica present Qualified Code(s): M54.5 - Low back pain ; G89.29 - Other chronic pain (6) DVT prophylaxis Priority: Secondary Status: Acute Assessment and Plan: [facility] course: Ms. Salazar is a 36 year old female was admitted for COPD exacerbation. Patient reports recent shortness of breath for several days with productive cough. Patient has chronic back pain and was treated with her normal dose of pain medication. Patient with wheezing heard and posterior lung murphy. Patient has been up ambulating in the room, she was also found by staff outside smoking by the fountain. She and her boyfriend were also found the bathroom together by nurse, later when I entered the room, both patient and male visitor where exceptionally drowsy, having trouble keeping her eyes open. Labs have returned to normal, vitals are stable. Patient is appropriate for discharge. Discharge discussed with: patient - Time Spent with Patient Total time spent providing and/or coordinating discharge services: Less than 30 minutes - Discharge Medications Prescriptions: Levofloxacin [Levaquin] 500 mg PO DAILY #7 tablet predniSONE [PredniSONE] 10 mg PO DAILY #31 tablet Home Medications: Acyclovir [Zovirax] 400 mg PO BID 09/02/17 [History] Albuterol Sulfate [Proair Hfa] 2 puff IH Q4-6H PRN 09/02/17 [History] Aspirin [Lo-Dose Aspirin EC] 81 mg PO DAILY 09/02/17 [History] Ibuprofen [Ibu] 400 mg PO BID PRN 09/02/17 [History] Levofloxacin [Levaquin] 500 mg PO DAILY #7 tablet 09/02/17 [Rx] Morphine Sulfate SR (12 HR) [MS Contin] 1 tab PO Q12HR 09/02/17 [History] Multivit-Min/FA/Lycopen/Lutein [A Thru [employer] Multivit Tab] 1 tab PO DAILY 02/09 [History] Quetiapine Fumarate [Seroquel] 50 mg PO DAILY 09/02/17 [History] Ranitidine HCl [Acid Animal Caretaker] 150 mg PO DAILY 09/02/17 [History] diazePAM [Valium] 10 mg PO BID 09/02/17 [History] predniSONE [PredniSONE] 10 mg PO DAILY #31 tablet 09/02/17 [Rx] Allergies/Adverse Reactions: 3 Allergy/AdvReac Type Severity Reaction Status Date / Time cephalexin [From Keflex] Allergy Swelling Verified 09/01/17 21:56 of Lip/Tongue/Throat Date of admission: 09/02/17 03:46 Primary care physician: PCP NONE Consults: 09/02/17 09:43 Consult to Nurse Navigator [CONS] Routine Comment: COPD Discharging clinician: Erika Mark Anticipated date of discharge: 09/02/17 - Constitutional Vitals: Temp Pulse Resp BP Pulse Ox 97.4 F L 107 16 118/72 93 09/02/17 11:33 09/02/17 11:33 09/02/17 11:33 09/02/17 11:33 09/02/17 11:33 General appearance: Present: cooperative, A&O X 3, no acute distress, answers questions appropriately - Head Head exam: Present: atraumatic, normal inspection, normocephalic - Eye Eye exam: Present: conjuntiva pink, sclera anicteric. Absent: nystagmus - Neck Neck exam general surgery: Present: supple, trachea midline. Absent: lymphadenopathy - Respiratory Respiratory exam: Present: CTAB, wheezes. Absent: accessory muscle use, chest wall tenderness, rales, respiratory distress, rhonchi - Cardiovascular Cardiovascular exam: Present: RRR, +S1, +S2. Absent: diastolic murmur, gallop, rubs, systolic murmur - GI/Abdominal GI/Abdominal exam: Present: normal bowel sounds, soft. Absent: distended, hepatomegaly, tenderness - Extremities Exam Extremities exam: Present: normal capillary refill, normal inspection, warm, radial pulses palpable and symmetrical. Absent: calf tenderness, cyanotic, pedal edema, tenderness - Neurological Exam Neurological exam: Present: alert, altered, oriented X3, no focal deficits. Absent: facial droop, speech deficit - Skin Skin exam: Present: dry, intact, normal color, warm. Absent: rash - Patient Status Disposition: Home, Self-Care Condition: Good Functional capacity at discharge: independent ambulation Overall status at discharge: patient is progressing back to baseline - Discharge Instructions Follow Up With: NONE,PCP [Primary Care Provider] - Zofia Love [Family Provider] - Additional Instructions: Please follow up with your PCP in the next 3-5 days for recheck. Taking your medications as directed. Your new prescriptions have been called into her pharmacy. Please return to the emergency department as needed for any other problems or concerns, or if your symptoms return or worsen. - Diet and Activity Activity: increase activity as tolerated Diet: advance to your usual diet
[2017-09-02] MEDS ORDERED: *HR* Morphine Sulfate SR (12 HR) 100 MG TABLET.ER PO SCH (18:00)
[2017-09-03] MEDS ORDERED: Levofloxacin 750 MG/150 ML 750 MG/150 ML BAG IVPB SCH (01:00)
== END 2017-09-02 14:27 | disposition home or self-care (01) | DRG 140 ==
LOC: 3BNU 21:53 → EMEROO 21:53 → 3BNU 09-02 03:25
PROVIDERS: ADMIT Internal Medicine; ATTEND Internal Medicine

== ENCOUNTER 2019-06-01 20:05 | Inpatient (IN) ==
[2019-06-01] MEDS ORDERED: *HR* HYDROcodone/Acet 5/325 mg TABLET PO PRN (21:30)
[2019-06-01] MEDS ORDERED: Isovue-370 500 ML BOTTLE IVP ONE ×2 (21:42→21:47)
[2019-06-01 23:01] LABS: Basophils % 0.2 %; Eosinophils # 0.2 K/mcL (0.0-0.6); Eosinophils % 1.1 %; Hematocrit 45.1 % (35.3-44.9); Hemoglobin 14.7 g/dL (11.5-15.4); Immature Granulocytes % 0.3 % (0-4); Lymphocytes # 4.7 K/mcL (0.6-4.6); Lymphocytes % 25.9 %; Mean Corpuscular HGB Conc 32.6 g/dL (31.6-35.5); Mean Corpuscular Hemoglobin 30.1 pg (28.0-33.3); Mean Corpuscular Volume 92.4 fL (83.0-100.0); Mean Platelet Volume 10.2 fL (9.4-12.4); Monocytes % 5.5 %; Neutrophils # 12.1 K/mcL (1.6-8.9); Platelet Count 373 K/mcL (140-400); Red Blood Count 4.88 M/mcL (3.82-4.97); Red Cell Distribution Width 13.2 % (11.5-14.5); White Blood Count 18.1 K/mcL (4.3-11.1)
[2019-06-01 23:17] LABS: BUN/Creatinine Ratio 12 (6-26); Blood Urea Nitrogen 9 mg/dL (6-20); Calcium 8.8 mg/dL (8.6-10.3); Carbon Dioxide 24 mEq/L (23-29); Chloride 109 mEq/L (98-107); Glucose 96 mg/dL (70-105); Osmolality,Calculated 281 (280-300); Potassium 3.6 mEq/L (3.5-5.1); Sodium 136 mEq/L (136-145); eGFR For African Americans > 60 (> 60); eGFR For Non-African Americans > 60 (> 60)
[2019-06-02] MEDS ORDERED: Naloxone 0.4 MG/ML INJ IVP PRN (01:06)
[2019-06-02] MEDS ORDERED: Ondansetron 4 MG/2 ML VIAL IVP PRN (01:06)
[2019-06-02] MEDS: Acetaminophen 325 MG TABLET PO PRN ×3 (02:12→19:58)
[2019-06-02] MEDS ORDERED: Ringers Solution, Lactated 1,000 ML IVC ONE (04:13)
[2019-06-02] MEDS ORDERED: Ipratropium/Albuterol Neb 3 ML IH PRN (04:18)
[2019-06-02 05:11] LABS: Basophils # 0.1 K/mcL (0.0-0.2); Basophils % 0.3 %; Eosinophils # 0.2 K/mcL (0.0-0.6); Eosinophils % 1.4 %; Hematocrit 42.8 % (35.3-44.9); Hemoglobin 13.8 g/dL (11.5-15.4); Immature Granulocytes % 0.5 % (0-4); Lymphocytes # 4.3 K/mcL (0.6-4.6); Lymphocytes % 27.3 %; Mean Corpuscular HGB Conc 32.2 g/dL (31.6-35.5); Mean Corpuscular Hemoglobin 29.5 pg (28.0-33.3); Mean Corpuscular Volume 91.5 fL (83.0-100.0); Mean Platelet Volume 10.2 fL (9.4-12.4); Monocytes # 1.1 K/mcL (0.0-1.3); Platelet Count 356 K/mcL (140-400); Red Blood Count 4.68 M/mcL (3.82-4.97); Red Cell Distribution Width 13.3 % (11.5-14.5); Segmented Neutrophils % 63.5 %; White Blood Count 15.7 K/mcL (4.3-11.1)
[2019-06-02] MEDS: *HR* Heparin 5,000 UNIT/ML VIAL SQ SCH ×4 (05:22→20:02)
[2019-06-02 05:26] LABS: BUN/Creatinine Ratio 12 (6-26); Blood Urea Nitrogen 8 mg/dL (6-20); Calcium 8.3 mg/dL (8.6-10.3); Carbon Dioxide 24 mEq/L (23-29); Chloride 108 mEq/L (98-107); Glucose 108 mg/dL (70-105); Magnesium 1.7 mg/dL (1.6-2.6); Osmolality,Calculated 285 (280-300); Potassium 3.4 mEq/L (3.5-5.1); Sodium 138 mEq/L (136-145); eGFR For African Americans > 60 (> 60); eGFR For Non-African Americans > 60 (> 60)
[2019-06-02] MEDS: Ringers Solution, Lactated 1,000 ML IVC SCH (05:32)
[2019-06-02 05:48] LABS: Platelet Estimate Normal (Normal); Reactive Lymphocytes Present (Not Present)
[2019-06-02] MEDS: Piperacillin/Tazobactam 3.375 GM in 0.9 % Sodium Chloride Mini Bag 100 ML IVPB SCH ×2 (07:55→16:27)
[2019-06-02] MEDS: Lactobacillus 1 EACH CAP.SPRINK PO SCH ×2 (07:58→19:59)
[2019-06-02] MEDS: Chlorhexidine Rinse 15 ML MOUTHWASH MM SCH ×2 (07:58→19:59)
[2019-06-02] MEDS ORDERED: 0.9 % Sodium Chloride 1,000 ML IVC SCH (09:15)
[2019-06-02] MEDS: Ketorolac 15 MG/ML VIAL IVP PRN ×2 (15:35→21:32)
[2019-06-02] MEDS: Artificial Tears SOLN 15 ML BOTTLE LEFT EYE SCH (22:32)
[2019-06-03] MEDS: Piperacillin/Tazobactam 3.375 GM in 0.9 % Sodium Chloride Mini Bag 100 ML IVPB SCH ×2 (00:53→08:52)
[2019-06-03] MEDS: Ketorolac 15 MG/ML VIAL IVP PRN (04:44)
[2019-06-03] MEDS: *HR* Heparin 5,000 UNIT/ML VIAL SQ SCH (05:14)
[2019-06-03 05:51] LABS: Basophils % 0.3 %; Eosinophils # 0.2 K/mcL (0.0-0.6); Eosinophils % 1.6 %; Hematocrit 38.4 % (35.3-44.9); Hemoglobin 12.4 g/dL (11.5-15.4); Immature Granulocytes % 0.5 % (0-4); Lymphocytes % 23.5 %; Mean Corpuscular HGB Conc 32.3 g/dL (31.6-35.5); Mean Corpuscular Volume 92.8 fL (83.0-100.0); Mean Platelet Volume 10.6 fL (9.4-12.4); Monocytes % 7.7 %; Neutrophils # 8.5 K/mcL (1.6-8.9); Platelet Count 306 K/mcL (140-400); Red Blood Count 4.14 M/mcL (3.82-4.97); Red Cell Distribution Width 13.2 % (11.5-14.5); Segmented Neutrophils % 66.4 %; White Blood Count 12.9 K/mcL (4.3-11.1)
[2019-06-03 06:13] LABS: BUN/Creatinine Ratio 12 (6-26); Blood Urea Nitrogen 8 mg/dL (6-20); Calcium 8.5 mg/dL (8.6-10.3); Carbon Dioxide 23 mEq/L (23-29); Chloride 110 mEq/L (98-107); Glucose 108 mg/dL (70-105); Magnesium 1.8 mg/dL (1.6-2.6); Osmolality,Calculated 285 (280-300); Phosphorous 2.9 mg/dL (2.7-4.5); Sodium 138 mEq/L (136-145); eGFR For African Americans > 60 (> 60); eGFR For Non-African Americans > 60 (> 60)
[2019-06-03] MEDS: Ringers Solution, Lactated 1,000 ML IVC SCH ×2 (08:44→08:53)
[2019-06-03] MEDS: Chlorhexidine Rinse 15 ML MOUTHWASH MM SCH (08:54)
[2019-06-03] MEDS: Artificial Tears SOLN 15 ML BOTTLE LEFT EYE SCH (08:54)
[2019-06-03] MEDS: Lactobacillus 1 EACH CAP.SPRINK PO SCH (08:54)
[2019-06-03 11:06] VITALS: BP 110/57
[2019-06-03] MEDS ORDERED: Aminoglycoside Consult 1 EACH MC ONE (12:44)
== END 2019-06-03 12:45 | disposition home or self-care (01) ==
LOC: 3BNU 20:05 → EMEROOARM 20:05 → SUATTDRO 06-02 01:28 → 3BNU 06-02 01:45
PROVIDERS: ADMIT Pharmacist; ATTEND Internal Medicine